=== PATIENT | female | born 1975 | race Caucasian/White ===

== ENCOUNTER → 2017-01-08 | Outpatient (CLI) | payer OTHER ==
[2017-01-13 14:12] LABS: STREP PNEUMO TYPE 12F 0.4 ug/mL (>1.3); STREP PNEUMO TYPE 18C >22.4 ug/mL (>1.3); STREP PNEUMO TYPE 19F 1.8 ug/mL (>1.3); STREP PNEUMO TYPE 23F 1.2 ug/mL (>1.3); STREP PNEUMO TYPE 6B 1.6 ug/mL (>1.3); STREP PNEUMO TYPE 7F 3.7 ug/mL (>1.3); STREP PNEUMO TYPE 9N 4.3 ug/mL (>1.3); STREP PNEUMO TYPE 9V 1.4 ug/mL (>1.3)
== END ==
LOC: M SMT 10:42
PROVIDERS: ATTEND Nurse Practitioner Family
DX: D84.9 Immunodeficiency, unspecified (principal)

== ENCOUNTER 2018-10-06 08:12 | Day surgery (SDC) | payer OTHER ==
[2018-10-06] MEDS: LR 1,000 ML IV (08:31)
[2018-10-06 08:50] LABS: HEMATOCRIT 43.5 % (36.0-47.0); HEMOGLOBIN 14.7 g/dl (12.0-15.5)
[2018-10-06 09:06] LABS: CONTROL LINE HCG INT CTR LINE PRESENT; HCG, SERUM QUALITATIVE NEGATIVE (NEGATIVE)
[2018-10-06] MEDS ORDERED: MIDAZOLAM INJ 2 MG/2 ML VIAL (J2250) As Ordered (09:11)
[2018-10-06] MEDS ORDERED: ROCURONIUM BROMIDE 50 MG/5 ML VIAL As Ordered (09:11)
[2018-10-06] MEDS ORDERED: LIDOCAINE PRES-FREE 2% 10ML AMP As Ordered (09:11)
[2018-10-06] MEDS ORDERED: fentaNYL 100 MCG/2 ML INJECTION (J3010) As Ordered ×2 (09:11→11:17)
[2018-10-06] MEDS ORDERED: PROPOFOL 200 MG/20 ML VIAL As Ordered (09:11)
[2018-10-06] MEDS ORDERED: dexameTHASONE 4 MG/ML 1ML VIAL (J1100) As Ordered ×2 (09:11→09:12)
[2018-10-06] MEDS ORDERED: KETOROLAC 60 MG/2 ML VIAL (J1885) As Ordered (11:40)
[2018-10-06] MEDS ORDERED: ONDANSETRON 4MG/2ML VIAL (J2405) As Ordered (11:40)
[2018-10-06] MEDS ORDERED: GLYCOPYRROLATE INJ 0.2 MG/ML 2 ML VIAL As Ordered (11:41)
[2018-10-06] MEDS: BUPIVACAINE HCL 0.25% 30 ML VIAL As Ordered (11:48)
[2018-10-06] MEDS ORDERED: PERCOCET 5MG/325MG TAB PO (13:00)
[2018-10-06] MEDS ORDERED: ONDANSETRON 4MG/2ML VIAL (J2405) IV (13:00)
[2018-10-06] MEDS ORDERED: LR 1,000 ML IV (13:00)
[2018-10-06] MEDS ORDERED: fentaNYL 100 MCG/2 ML INJECTION (J3010) IV (13:00)
== END 2018-10-06 14:55 | disposition home or self-care (01) ==
LOC: M SDC 08:12
DX: N70.11 Chronic salpingitis (principal); R51 Headache; Z72.0 Tobacco use; Z98.51 Tubal ligation status
CPT/HCPCS: 58661

== ENCOUNTER → 2019-10-27 | Outpatient (REF) | payer OTHER ==
[~2019-10-27] MED LIST: ASTE0.15; FLON1SPR
[2019-10-27 23:27] LABS: CHLAMYDIA DNA AMPLIFICATION NEGATIVE (NEGATIVE); GC DNA AMPLIFICATION NEGATIVE (NEGATIVE)
== END ==
LOC: M SFHCLERA 13:12
PROVIDERS: ATTEND Nurse Practitioner Family
DX: R35.0 Frequency of micturition (principal)
CPT/HCPCS: 81002; 81025; 87088; 87186; 87661; G0463